=== PATIENT | female | born 1940 | race African-American/Black ===

== ENCOUNTER 2017-03-26 03:45 | Inpatient (IN) ==
[2017-03-26] MEDS ORDERED: GLUCAGON 1 MG VIAL IM PRN (04:20)
[2017-03-26] MEDS ORDERED: DEXTROSE 50% 25 GM/50 ML VIAL IV PRN (04:20)
[2017-03-26 04:41] LABS: Basophils % 0.2 % (0.0-0.8); Eosinophils # 0.1 10*3/uL (0.0-0.87); Eosinophils % 0.6 % (0.00-10.9); Hematocrit 33.4 VOL% (35.7-47.0); Hemoglobin 10.9 GM/DL (12.0-16.0); Immature Granulocytes % 0.5 %; Immature Granulocytes Absolute 0.05 #; Lymphocytes % 9.6 % (21.3-54.2); Mean Corpuscular HGB Conc 32.6 GM/DL (32-36); Mean Corpuscular Hemoglobin 28 PG (27-34); Monocytes # 0.3 10*3/uL (0.11-0.8); Monocytes % 2.5 % (1.7-12.7); Neutrophils # 9.3 10*3/uL (1.4-7.4); Neutrophils % 86.6 % (38.7-73.9); Platelet Count 331 T/CUMM (130-400); Red Blood Count 3.93 MC/CUMM (3.8-5.5); Red Cell Distribution Width 14.5 % (9.3-17.3); White Blood Count 10.8 T/CUMM (4-12)
[2017-03-26] MEDS: methylPREDNISolone SOD SUC 40 MG/1 ML VIAL IV SCH ×3 (04:59→20:46)
[2017-03-26] MEDS: INSULIN LISPRO 100 UNIT/ML SUBCUT SCH ×5 (05:05→21:11)
[2017-03-26] MEDS: FAMOTIDINE 20 MG/2 ML VIAL IV SCH ×2 (07:14→18:53)
[2017-03-26] MEDS ORDERED: ALBUTEROL 2.5 MG/3 ML NEB RESP TX PRN (11:27)
[2017-03-26] MEDS ORDERED: PROMETH HCL PO PRN (11:27)
[2017-03-26] MEDS ORDERED: PHENYLEPHRINE HCL PO PRN (11:27)
[2017-03-26] MEDS ORDERED: diphenhydrAMINE 50 MG/1 ML VIAL IV SCH (12:00)
[2017-03-26] MEDS ORDERED: NON-FORMULARY MEDICATION (Alendronate Sodium [Alendronate Sodium] 70 MG) PO SCH (13:00)
[2017-03-26] MEDS: ALBUTEROL/IPRATROPIUM 3 ML NEB RESP TX SCH ×2 (14:40→20:31)
[2017-03-26] MEDS: POTASSIUM CHLORIDE 10 MEQ TABLET PO SCH (20:45)
[2017-03-26] MEDS: glyBURIDE/METFORMIN 2.5-500 MG TABLET PO SCH (20:46)
[2017-03-26] MEDS ORDERED: PRAVASTATIN 40 MG TABLET PO SCH (21:00)
[2017-03-26] MEDS ORDERED: ARIPiprazole 5 MG TABLET PO SCH (21:00)
[2017-03-26] MEDS ORDERED: AMITRIPTYLINE 25 MG TABLET PO SCH (21:00)
[2017-03-26] MEDS ORDERED: RANITIDINE 150 MG TABLET PO SCH (21:00)
[2017-03-26] MEDS ORDERED: THEOPHYLLINE ER (24 HR) 400 MG CAPSULE PO SCH (21:00)
[2017-03-27] MEDS: ALBUTEROL/IPRATROPIUM 3 ML NEB RESP TX SCH ×2 (01:11→08:00)
[2017-03-27] MEDS: methylPREDNISolone SOD SUC 40 MG/1 ML VIAL IV SCH (05:29)
[2017-03-27] MEDS: FAMOTIDINE 20 MG/2 ML VIAL IV SCH (06:37)
[2017-03-27 06:42] LABS: Basophils % 0.1 % (0.0-0.8); Hemoglobin 10.1 GM/DL (12.0-16.0); Immature Granulocytes % 0.9 %; Immature Granulocytes Absolute 0.14 #; Lymphocytes # 1.2 10*3/uL (1.4-4.0); Lymphocytes % 7.3 % (21.3-54.2); Mean Corpuscular HGB Conc 32.6 GM/DL (32-36); Mean Corpuscular Hemoglobin 27 PG (27-34); Mean Corpuscular Volume 84.2 FL (87-102); Mean Platelet Volume 9.7 FL (9.6-12.0); Monocytes # 0.6 10*3/uL (0.11-0.8); Monocytes % 3.4 % (1.7-12.7); Neutrophils # 14.5 10*3/uL (1.4-7.4); Neutrophils % 88.3 % (38.7-73.9); Platelet Count 338 T/CUMM (130-400); Red Blood Count 3.68 MC/CUMM (3.8-5.5); Red Cell Distribution Width 14.5 % (9.3-17.3); White Blood Count 16.4 T/CUMM (4-12)
[2017-03-27 07:01] LABS: Albumin 3.4 G/DL (3.4-5.0); Bilirubin,Total 0.5 MG/DL (0.2-1.0); Calcium 9.5 MG/DL (8.5-10.1); Magnesium 2.2 MG/DL (1.8-2.4); Osmolality,Calculated 291.4 MOS/KG (273-304); Phosphorous 3.6 MG/DL (2.5-4.9); Potassium 4.4 MMOL/L (3.5-5.1); Total Protein 6.8 G/DL (6.4-8.3)
[2017-03-27 07:58] VITALS: BP 122/58
[2017-03-27] MEDS: INSULIN LISPRO 100 UNIT/ML SUBCUT SCH (08:54)
[2017-03-27] MEDS: glyBURIDE/METFORMIN 2.5-500 MG TABLET PO SCH (08:55)
[2017-03-27] MEDS: POTASSIUM CHLORIDE 10 MEQ TABLET PO SCH (08:55)
[2017-03-27] MEDS ORDERED: DILTIAZEM CD 300 MG CAPSULE PO SCH (09:00)
[2017-03-27] MEDS ORDERED: FUROSEMIDE 40 MG TABLET PO SCH (09:00)
[2017-03-27] MEDS ORDERED: MULTIVITAMIN (CENTRUM) TABLET PO SCH (09:00)
[2017-03-27] MEDS ORDERED: NON-FORMULARY MEDICATION (Fluticasone/Vilanterol [Breo Ellipta 100-25 Mcg Inh] 1 PUFF) INH SCH (09:00)
[2017-03-27] MEDS ORDERED: PANTOPRAZOLE 40 MG TABLET PO SCH (09:00)
[2017-03-27] MEDS ORDERED: TRIAMTERENE/HCTZ 37.5-25 MG CAPSULE PO SCH (09:00)
== END 2017-03-27 11:45 | disposition home or self-care (01) | DRG 916 ==
LOC: EDBD → EDUNIT# → N.ED 03:45 → N.EDINP 04:18 → N.ICU 04:41 → N.4E 11:59

== ENCOUNTER 2017-10-20 05:22 | Inpatient (IN) ==
[2017-10-22 12:00] VITALS: BP 132/71
== END 2017-10-22 15:17 | disposition home or self-care (01) | DRG 390 ==
LOC: EDUNIT# → EDBD → N.ED 05:22 → N.EDINP 07:14 → N.5E 11:52
PROVIDERS: ADMIT Surgery; ATTEND Surgery

== ENCOUNTER 2018-12-06 00:30 | Inpatient (IN) ==
[2018-12-06] MEDS ORDERED: ACETAMINOPHEN 325 MG TABLET PO PRN (02:41)
[2018-12-06] MEDS ORDERED: ONDANSETRON 4 MG/2 ML VIAL IV PRN (02:41)
[2018-12-06] MEDS ORDERED: HYDROmorphone 2 MG/1 ML VIAL IV PRN (02:41)
[2018-12-06] MEDS ORDERED: LABETALOL 20 MG/4 ML SYRINGE IV PRN (03:10)
[2018-12-06] MEDS: SODIUM CHLORIDE 0.9% 1,000 ML IV SCH ×2 (03:29→11:47)
[2018-12-06] MEDS: PIPERACILLIN/TAZOBACTAM 3,375 MG in SODIUM CHLORIDE 0.9% 100 ML IV SCH ×3 (03:30→18:45)
[2018-12-06] MEDS ORDERED: DEXTROSE 50% 25 GM/50 ML VIAL IV PRN (03:38)
[2018-12-06] MEDS ORDERED: GLUCAGON 1 MG VIAL IM PRN (03:38)
[2018-12-06 04:10] LABS: Basophils % 0.3 % (0.0-0.8); Eosinophils # 0.2 10*3/uL (0.0-0.87); Hematocrit 37.4 VOL% (35.7-47.0); Hemoglobin 11.2 GM/DL (12.0-16.0); Immature Granulocytes % 2.4 %; Immature Granulocytes Absolute 0.22 #; Lymphocytes # 1.6 10*3/uL (1.4-4.0); Lymphocytes % 17.2 % (21.3-54.2); Mean Corpuscular HGB Conc 29.9 GM/DL (32-36); Mean Corpuscular Volume 90.1 FL (87-102); Mean Platelet Volume 10.2 FL (9.6-12.0); Monocytes % 10.9 % (1.7-12.7); Neutrophils % 67.2 % (38.7-73.9); Platelet Count 285 T/CUMM (130-400); Red Blood Count 4.15 MC/CUMM (3.8-5.5); Red Cell Distribution Width 16.1 % (9.3-17.3); White Blood Count 9.2 T/CUMM (4-12)
[2018-12-06 04:15] LABS: Albumin 3.2 G/DL (3.4-5.0); Bilirubin,Total 0.4 MG/DL (0.2-1.0); Calcium 10.2 MG/DL (8.5-10.1); Osmolality,Calculated 280.3 MOS/KG (273-304); Total Protein 7.2 G/DL (6.4-8.3)
[2018-12-06 05:05] LABS: Apearance,Urine CLEAR (Clear); Bilirubin,Urine Negative (Negative); Blood, Urine Negative (Negative); Glucose,Urine (UA) Negative (Negative); Hyaline Casts,Urine 1 /LPF (0-3); Ketones,Urine Negative (Negative); Nitrite,Urine Negative (Negative); Protein,Urine 100 MG/DL; RBC,Urine <1 /HPF (0-4); Squamous Epithelial Cell,Urine Occasional /HPF (0-10); Urine Color Yellow (Yellow); Urine Specific Gravity 1.042 (1.001-1.035); Urine Urobilinogen < 2.0 EU/DL (0.2-1.0); WBC,Urine 1 /HPF (0-6)
[2018-12-06] MEDS: INSULIN REGULAR 100 UNIT/ML SUBCUT SCH ×3 (05:34→18:28)
[2018-12-06] MEDS: ENOXAPARIN 40 MG/0.4 ML SYRINGE SUBCUT SCH (09:43)
[2018-12-06] MEDS: FAMOTIDINE 20 MG/2 ML VIAL IV SCH (09:44)
[2018-12-07] MEDS: INSULIN REGULAR 100 UNIT/ML SUBCUT SCH ×4 (00:13→19:12)
[2018-12-07] MEDS: SODIUM CHLORIDE 0.9% 1,000 ML IV SCH ×3 (03:27→10:41)
[2018-12-07] MEDS: PIPERACILLIN/TAZOBACTAM 3,375 MG in SODIUM CHLORIDE 0.9% 100 ML IV SCH ×3 (04:00→22:14)
[2018-12-07 06:36] LABS: Calcium 9.4 MG/DL (8.5-10.1); Osmolality,Calculated 285.7 MOS/KG (273-304)
[2018-12-07 06:39] LABS: Basophils % 0.2 % (0.0-0.8); Eosinophils # 0.2 10*3/uL (0.0-0.87); Eosinophils % 2.2 % (0.00-10.9); Hematocrit 32.7 VOL% (35.7-47.0); Immature Granulocytes % 2.4 %; Immature Granulocytes Absolute 0.21 #; Lymphocytes # 1.8 10*3/uL (1.4-4.0); Lymphocytes % 20.2 % (21.3-54.2); Mean Corpuscular HGB Conc 29.4 GM/DL (32-36); Mean Corpuscular Volume 92.9 FL (87-102); Mean Platelet Volume 10.1 FL (9.6-12.0); Monocytes % 9.9 % (1.7-12.7); Neutrophils % 65.1 % (38.7-73.9); Platelet Count 277 T/CUMM (130-400); Red Blood Count 3.52 MC/CUMM (3.8-5.5); Red Cell Distribution Width 16.2 % (9.3-17.3); White Blood Count 8.9 T/CUMM (4-12)
[2018-12-07 06:40] LABS: Hemoglobin 9.6 GM/DL (12.0-16.0)
[2018-12-07 06:41] LABS: Hypochromasia 1+; Ovalocytes Slight; Platelet Estimate Adequate
[2018-12-07] MEDS: ENOXAPARIN 40 MG/0.4 ML SYRINGE SUBCUT SCH (10:07)
[2018-12-07] MEDS: FAMOTIDINE 20 MG/2 ML VIAL IV SCH ×2 (10:07→12:02)
[2018-12-07] MEDS: LEVALBUTEROL 1.25 MG/3 ML NEB RESP TX PRN (18:26)
[2018-12-08] MEDS: INSULIN REGULAR 100 UNIT/ML SUBCUT SCH ×4 (00:36→18:05)
[2018-12-08] MEDS: GLUCOSE GEL 15 GM TUBE PO PRN ×4 (00:47→18:26)
[2018-12-08] MEDS: SODIUM CHLORIDE 0.9% 1,000 ML IV SCH ×3 (04:53→21:15)
[2018-12-08 05:18] LABS: Basophils % 0.3 % (0.0-0.8); Eosinophils # 0.2 10*3/uL (0.0-0.87); Eosinophils % 2.2 % (0.00-10.9); Hematocrit 32.9 VOL% (35.7-47.0); Immature Granulocytes % 2.6 %; Immature Granulocytes Absolute 0.24 #; Lymphocytes # 1.7 10*3/uL (1.4-4.0); Mean Corpuscular HGB Conc 28.3 GM/DL (32-36); Mean Corpuscular Volume 94.5 FL (87-102); Mean Platelet Volume 9.8 FL (9.6-12.0); Monocytes % 9.4 % (1.7-12.7); Neutrophils % 66.5 % (38.7-73.9); Platelet Count 272 T/CUMM (130-400); Red Blood Count 3.48 MC/CUMM (3.8-5.5); Red Cell Distribution Width 16.1 % (9.3-17.3); White Blood Count 9.2 T/CUMM (4-12)
[2018-12-08] MEDS: LEVALBUTEROL 1.25 MG/3 ML NEB RESP TX PRN ×3 (05:32→15:42)
[2018-12-08 06:03] LABS: Calcium 9.5 MG/DL (8.5-10.1); Osmolality,Calculated 288.6 MOS/KG (273-304)
[2018-12-08 06:06] LABS: Hemoglobin 9.5 GM/DL (12.0-16.0)
[2018-12-08 06:18] LABS: Hypochromasia 1+; Microcytosis 1+
[2018-12-08 06:19] LABS: Ovalocytes Slight; Platelet Estimate Normal
[2018-12-08] MEDS: PIPERACILLIN/TAZOBACTAM 3,375 MG in SODIUM CHLORIDE 0.9% 100 ML IV SCH ×3 (06:45→21:15)
[2018-12-08] MEDS: ENOXAPARIN 40 MG/0.4 ML SYRINGE SUBCUT SCH (09:55)
[2018-12-08] MEDS: FAMOTIDINE 20 MG/2 ML VIAL IV SCH (09:56)
[2018-12-09] MEDS: LEVALBUTEROL 1.25 MG/3 ML NEB RESP TX PRN ×2 (00:17→11:16)
[2018-12-09] MEDS: INSULIN REGULAR 100 UNIT/ML SUBCUT SCH ×4 (01:16→18:00)
[2018-12-09] MEDS: GLUCOSE GEL 15 GM TUBE PO PRN (01:25)
[2018-12-09 05:56] LABS: Basophils % 0.3 % (0.0-0.8); Eosinophils # 0.3 10*3/uL (0.0-0.87); Eosinophils % 2.8 % (0.00-10.9); Hematocrit 31.9 VOL% (35.7-47.0); Hemoglobin 9.3 GM/DL (12.0-16.0); Immature Granulocytes % 2.5 %; Immature Granulocytes Absolute 0.24 #; Lymphocytes % 21.2 % (21.3-54.2); Mean Corpuscular HGB Conc 29.2 GM/DL (32-36); Mean Corpuscular Volume 93.8 FL (87-102); Mean Platelet Volume 9.9 FL (9.6-12.0); Monocytes % 9.9 % (1.7-12.7); Neutrophils % 63.3 % (38.7-73.9); Platelet Count 254 T/CUMM (130-400); Red Cell Distribution Width 16.1 % (9.3-17.3); White Blood Count 9.5 T/CUMM (4-12)
[2018-12-09 06:11] LABS: Calcium 9.9 MG/DL (8.5-10.1); Osmolality,Calculated 289.4 MOS/KG (273-304)
[2018-12-09 06:12] LABS: Anisocytosis Slight; Macrocytosis Slight; Platelet Estimate Normal
[2018-12-09] MEDS: PIPERACILLIN/TAZOBACTAM 3,375 MG in SODIUM CHLORIDE 0.9% 100 ML IV SCH ×3 (06:25→21:06)
[2018-12-09] MEDS: FAMOTIDINE 20 MG/2 ML VIAL IV SCH (09:47)
[2018-12-09] MEDS: ENOXAPARIN 40 MG/0.4 ML SYRINGE SUBCUT SCH (09:47)
[2018-12-09] MEDS ORDERED: LABETALOL 20 MG/4 ML SYRINGE IV PRN (11:38)
[2018-12-09] MEDS ORDERED: Fluticasone Furoate-Vilanterol [Breo Ellipta] INH SCH (11:45)
[2018-12-09] MEDS ORDERED: ALBUTEROL 2.5 MG/3 ML NEB RESP TX PRN (12:00)
[2018-12-09] MEDS: FUROSEMIDE 40 MG TABLET PO SCH (12:17)
[2018-12-09] MEDS: TRIAMTERENE/HCTZ 37.5-25 MG CAPSULE PO SCH (12:17)
[2018-12-09] MEDS: ATENOLOL 25 MG TABLET PO SCH (12:17)
[2018-12-09] MEDS: MULTIVITAMIN (CENTRUM) TABLET PO SCH (12:18)
[2018-12-09] MEDS: DILTIAZEM CD 300 MG CAPSULE PO SCH (12:18)
[2018-12-09] MEDS: BENZONATATE 100 MG CAPSULE PO PRN (14:38)
[2018-12-09] MEDS: ALBUTEROL/IPRATROPIUM 3 ML NEB RESP TX SCH ×2 (14:53→21:25)
[2018-12-09] MEDS: AMITRIPTYLINE 25 MG TABLET PO SCH (21:06)
[2018-12-09] MEDS: SIMVASTATIN 20 MG TABLET PO SCH (21:06)
[2018-12-09] MEDS: THEOPHYLLINE ER (24 HR) 400 MG CAPSULE PO SCH (21:06)
[2018-12-09] MEDS: ARIPiprazole 5 MG TABLET PO SCH (21:06)
[2018-12-10] MEDS: ALBUTEROL/IPRATROPIUM 3 ML NEB RESP TX SCH ×4 (01:32→19:15)
[2018-12-10] MEDS: INSULIN REGULAR 100 UNIT/ML SUBCUT SCH ×4 (03:09→18:26)
[2018-12-10 06:01] LABS: Basophils % 0.3 % (0.0-0.8); Eosinophils # 0.3 10*3/uL (0.0-0.87); Eosinophils % 3.6 % (0.00-10.9); Hematocrit 31.6 VOL% (35.7-47.0); Hemoglobin 9.3 GM/DL (12.0-16.0); Immature Granulocytes Absolute 0.18 #; Lymphocytes # 1.8 10*3/uL (1.4-4.0); Lymphocytes % 20.6 % (21.3-54.2); Mean Corpuscular HGB Conc 29.4 GM/DL (32-36); Mean Corpuscular Volume 91.6 FL (87-102); Mean Platelet Volume 10.2 FL (9.6-12.0); Monocytes % 9.3 % (1.7-12.7); Neutrophils % 64.2 % (38.7-73.9); Platelet Count 264 T/CUMM (130-400); Red Blood Count 3.45 MC/CUMM (3.8-5.5); Red Cell Distribution Width 15.9 % (9.3-17.3); White Blood Count 8.9 T/CUMM (4-12)
[2018-12-10] MEDS: PIPERACILLIN/TAZOBACTAM 3,375 MG in SODIUM CHLORIDE 0.9% 100 ML IV SCH ×3 (06:25→21:15)
[2018-12-10 06:29] LABS: Calcium 10.6 MG/DL (8.5-10.1); Osmolality,Calculated 284.8 MOS/KG (273-304)
[2018-12-10] MEDS: SODIUM CHLORIDE 0.9% 1,000 ML IV SCH (07:04)
[2018-12-10] MEDS ORDERED: POTASSIUM CHLORIDE 20 MEQ TABLET PO PRN (08:21)
[2018-12-10] MEDS: TRIAMTERENE/HCTZ 37.5-25 MG CAPSULE PO SCH (08:47)
[2018-12-10] MEDS: DILTIAZEM CD 300 MG CAPSULE PO SCH (08:47)
[2018-12-10] MEDS: MULTIVITAMIN (CENTRUM) TABLET PO SCH (08:47)
[2018-12-10] MEDS: ENOXAPARIN 40 MG/0.4 ML SYRINGE SUBCUT SCH (08:48)
[2018-12-10] MEDS: BENZONATATE 100 MG CAPSULE PO PRN (08:48)
[2018-12-10] MEDS: FUROSEMIDE 40 MG TABLET PO SCH (08:48)
[2018-12-10] MEDS: FAMOTIDINE 20 MG/2 ML VIAL IV SCH (08:49)
[2018-12-10] MEDS: ATENOLOL 25 MG TABLET PO SCH (08:51)
[2018-12-10] MEDS ORDERED: MAGNESIUM SULF RIDER 2 GM in PREMIX 1 EACH IV ONE (09:13)
[2018-12-10] MEDS ORDERED: POTASSIUM CHLORIDE 20 MEQ/15 ML UDCUP PO ONE (09:13)
[2018-12-10] MEDS ORDERED: amLODIPine 5 MG TABLET PO SCH (09:30)
[2018-12-10] MEDS: ARIPiprazole 5 MG TABLET PO SCH (20:28)
[2018-12-10] MEDS: SIMVASTATIN 20 MG TABLET PO SCH (20:28)
[2018-12-10] MEDS: THEOPHYLLINE ER (24 HR) 400 MG CAPSULE PO SCH (20:28)
[2018-12-10] MEDS: AMITRIPTYLINE 25 MG TABLET PO SCH (20:28)
[2018-12-11] MEDS: ALBUTEROL/IPRATROPIUM 3 ML NEB RESP TX SCH ×3 (00:52→12:36)
[2018-12-11] MEDS: INSULIN REGULAR 100 UNIT/ML SUBCUT SCH ×3 (01:14→12:56)
[2018-12-11] MEDS: PIPERACILLIN/TAZOBACTAM 3,375 MG in SODIUM CHLORIDE 0.9% 100 ML IV SCH (06:12)
[2018-12-11] MEDS: DILTIAZEM CD 300 MG CAPSULE PO SCH (09:41)
[2018-12-11] MEDS: FUROSEMIDE 40 MG TABLET PO SCH (09:42)
[2018-12-11] MEDS: ENOXAPARIN 40 MG/0.4 ML SYRINGE SUBCUT SCH (09:42)
[2018-12-11] MEDS: TRIAMTERENE/HCTZ 37.5-25 MG CAPSULE PO SCH (09:42)
[2018-12-11] MEDS: MULTIVITAMIN (CENTRUM) TABLET PO SCH (09:42)
[2018-12-11] MEDS: FAMOTIDINE 20 MG/2 ML VIAL IV SCH (09:43)
[2018-12-11] MEDS: ATENOLOL 25 MG TABLET PO SCH (09:43)
[2018-12-11 19:21] VITALS: BP 145/71
== END 2018-12-11 13:10 | disposition home or self-care (01) | DRG 389 ==
LOC: EDBD → EDUNIT# → N.ED 00:30 → N.EDINP 01:26 → N.CC 02:31 → N.3E 15:19
PROVIDERS: ADMIT Surgery; ATTEND Surgery

== ENCOUNTER 2019-05-19 00:02 | Inpatient (IN) ==
[2019-05-19] MEDS ORDERED: NICOTINE 21 MG/24 HR PATCH TRANSDERM PRN (02:42)
[2019-05-19] MEDS ORDERED: ONDANSETRON 4 MG/2 ML VIAL IV PRN (02:42)
[2019-05-19] MEDS ORDERED: GLUCAGON 1 MG VIAL IM PRN (03:08)
[2019-05-19] MEDS ORDERED: MEPERIDINE 25 MG/1 ML VIAL IV PRN (03:11)
[2019-05-19] MEDS: SODIUM CHLORIDE 0.9% 1,000 ML IV SCH ×2 (04:58→23:13)
[2019-05-19 05:14] LABS: Basophils % 0.3 % (0.0-0.8); Eosinophils # 0.1 10*3/uL (0.0-0.87); Eosinophils % 1.1 % (0.00-10.9); Hematocrit 30.8 VOL% (35.7-47.0); Hemoglobin 9.1 GM/DL (12.0-16.0); Immature Granulocytes % 0.3 %; Immature Granulocytes Absolute 0.02 #; Mean Corpuscular HGB Conc 29.5 GM/DL (32-36); Mean Corpuscular Volume 93.9 FL (87-102); Mean Platelet Volume 9.6 FL (9.6-12.0); Monocytes % 12.1 % (1.7-12.7); Neutrophils % 70.2 % (38.7-73.9); Platelet Count 259 T/CUMM (130-400); Red Blood Count 3.28 MC/CUMM (3.8-5.5); Red Cell Distribution Width 14.4 % (9.3-17.3); White Blood Count 6.1 T/CUMM (4-12)
[2019-05-19 05:41] LABS: Albumin 3.3 G/DL (3.4-5.0); Bilirubin,Direct 0.11 MG/DL (0.0-0.20); Bilirubin,Indirect 1.1 MG/DL (0.0-1.0); Bilirubin,Total 1.2 MG/DL (0.2-1.0); Bilirubin,Total 1.3 MG/DL (0.2-1.0); Calcium 9.4 MG/DL (8.5-10.1); Osmolality,Calculated 278.8 MOS/KG (273-304); Total Protein 7.3 G/DL (6.4-8.3); Total Protein 7.4 G/DL (6.4-8.3)
[2019-05-19 05:42] LABS: Band Neutrophils 7 % (0-10); Eosinophils 4 % (0-10); Hypochromasia 1+; Lymphocytes 19 % (20-55); Ovalocytes Slight; Platelet Estimate Adequate; Segmented Neutrophils 62 % (50-85); Total Cells Counted 100
[2019-05-19 06:22] LABS: Apearance,Urine CLEAR (Clear); Bacteria,Urine Occasional /HPF (Few); Bilirubin,Urine Negative (Negative); Blood, Urine Negative (Negative); Glucose,Urine (UA) Negative (Negative); Hyaline Casts,Urine 7 /LPF (0-3); Ketones,Urine Negative (Negative); Mucus,Urine Occasional /LPF (Occasional); Nitrite,Urine Negative (Negative); Protein,Urine 100 MG/DL; RBC,Urine 1 /HPF (0-4); Squamous Epithelial Cell,Urine Occasional /HPF (0-10); Urine Color Yellow (Yellow); Urine Specific Gravity 1.017 (1.001-1.035); Urine Urobilinogen < 2.0 EU/DL (0.2-1.0); WBC,Urine 1 /HPF (0-6)
[2019-05-19] MEDS: ALBUTEROL/IPRATROPIUM 3 ML NEB RESP TX SCH ×3 (07:13→19:12)
[2019-05-19] MEDS: PANTOPRAZOLE 40 MG VIAL IV SCH ×2 (09:28→21:39)
[2019-05-19] MEDS: INSULIN REGULAR 100 UNIT/ML SUBCUT SCH ×5 (09:29→21:35)
[2019-05-19] MEDS: DEXTROSE 10% 250 ML BAG IV PRN ×2 (16:50→23:46)
[2019-05-20] MEDS: ALBUTEROL/IPRATROPIUM 3 ML NEB RESP TX SCH ×4 (01:45→19:12)
[2019-05-20 05:54] LABS: Basophils % 0.2 % (0.0-0.8); Eosinophils # 0.1 10*3/uL (0.0-0.87); Eosinophils % 1.3 % (0.00-10.9); Hematocrit 28.7 VOL% (35.7-47.0); Hemoglobin 8.3 GM/DL (12.0-16.0); Immature Granulocytes % 0.4 %; Immature Granulocytes Absolute 0.02 #; Lymphocytes # 1.1 10*3/uL (1.4-4.0); Lymphocytes % 20.5 % (21.3-54.2); Mean Corpuscular HGB Conc 28.9 GM/DL (32-36); Mean Platelet Volume 9.5 FL (9.6-12.0); Monocytes % 11.2 % (1.7-12.7); Neutrophils % 66.4 % (38.7-73.9); Platelet Count 233 T/CUMM (130-400); Red Blood Count 2.99 MC/CUMM (3.8-5.5); Red Cell Distribution Width 14.5 % (9.3-17.3); White Blood Count 5.3 T/CUMM (4-12)
[2019-05-20 06:18] LABS: Calcium 8.5 MG/DL (8.5-10.1); Osmolality,Calculated 280.3 MOS/KG (273-304)
[2019-05-20 06:26] LABS: Hypochromasia 1+; Ovalocytes Slight; Platelet Estimate Adequate
[2019-05-20] MEDS: DEXTROSE 10% 250 ML BAG IV PRN (07:59)
[2019-05-20] MEDS: PANTOPRAZOLE 40 MG VIAL IV SCH ×2 (08:01→20:52)
[2019-05-20] MEDS: INSULIN REGULAR 100 UNIT/ML SUBCUT SCH ×4 (08:03→20:55)
[2019-05-20] MEDS: SODIUM CHLORIDE 0.9% 1,000 ML IV SCH (08:08)
[2019-05-20] MEDS: DEXTROSE 5% NACL 0.9% 1,000 ML IV SCH ×2 (09:35→22:00)
[2019-05-21] MEDS: ALBUTEROL/IPRATROPIUM 3 ML NEB RESP TX SCH ×4 (00:24→19:20)
[2019-05-21 06:03] LABS: Calcium 8.8 MG/DL (8.5-10.1); Osmolality,Calculated 282.1 MOS/KG (273-304)
[2019-05-21 07:29] LABS: Basophils % 0.1 % (0.0-0.8); Eosinophils # 0.1 10*3/uL (0.0-0.87); Eosinophils % 1.3 % (0.00-10.9); Hematocrit 29.4 VOL% (35.7-47.0); Hemoglobin 8.6 GM/DL (12.0-16.0); Immature Granulocytes % 0.4 %; Immature Granulocytes Absolute 0.03 #; Lymphocytes # 1.1 10*3/uL (1.4-4.0); Lymphocytes % 15.3 % (21.3-54.2); Mean Corpuscular HGB Conc 29.3 GM/DL (32-36); Mean Corpuscular Volume 96.1 FL (87-102); Mean Platelet Volume 9.9 FL (9.6-12.0); Monocytes % 9.6 % (1.7-12.7); Neutrophils % 73.3 % (38.7-73.9); Platelet Count 255 T/CUMM (130-400); Red Blood Count 3.06 MC/CUMM (3.8-5.5); Red Cell Distribution Width 14.5 % (9.3-17.3); White Blood Count 7.2 T/CUMM (4-12)
[2019-05-21 07:43] LABS: Hypochromasia 1+; Macrocytosis Slight
[2019-05-21 07:44] LABS: Ovalocytes Slight; Platelet Estimate Normal
[2019-05-21] MEDS: PANTOPRAZOLE 40 MG VIAL IV SCH ×2 (08:18→21:16)
[2019-05-21] MEDS ORDERED: LABETALOL 100 MG/20 ML VIAL IV PRN (08:19)
[2019-05-21] MEDS: INSULIN REGULAR 100 UNIT/ML SUBCUT SCH ×4 (08:33→21:16)
[2019-05-21] MEDS: DEXTROSE 5% NACL 0.9% 1,000 ML IV SCH ×2 (08:36→18:39)
[2019-05-21] MEDS: DILTIAZEM CD 300 MG CAPSULE PO SCH (12:27)
[2019-05-21] MEDS: TRIAMTERENE/HCTZ 37.5-25 MG CAPSULE PO SCH (12:28)
[2019-05-21] MEDS: ANASTROZOLE 1 MG TABLET PO SCH (12:28)
[2019-05-21] MEDS: atenoloL 25 MG TABLET PO SCH (12:28)
[2019-05-21 13:46] LABS: Hepatitis B Core IgM Quant 0.07 Index; Hepatitis B Surface Ag Quant < 0.10 Index; Hepatitis B Surface Ag Result Negative (Negative); Hepatitis C Virus Ab Quant 0.05 Index; Hepatitis C Virus Ab Result Negative (Negative)
[2019-05-21] MEDS: SODIUM CHLORIDE 0.9% 1,000 ML IV SCH ×2 (18:39→18:41)
[2019-05-21] MEDS ORDERED: FUROSEMIDE 40 MG/4 ML VIAL IV ONE (19:01)
[2019-05-21] MEDS ORDERED: ARIPiprazole 5 MG TABLET PO SCH (21:00)
[2019-05-21] MEDS ORDERED: AMITRIPTYLINE 25 MG TABLET PO SCH (21:00)
[2019-05-21] MEDS ORDERED: THEOPHYLLINE ER (24 HR) 400 MG CAPSULE PO SCH (21:00)
[2019-05-21] MEDS ORDERED: SIMVASTATIN 20 MG TABLET PO SCH (21:00)
[2019-05-22] MEDS: ALBUTEROL/IPRATROPIUM 3 ML NEB RESP TX SCH ×2 (00:45→08:02)
[2019-05-22 06:57] LABS: Calcium 8.7 MG/DL (8.5-10.1); Osmolality,Calculated 281.1 MOS/KG (273-304)
[2019-05-22 07:06] LABS: Basophils % 0.3 % (0.0-0.8); Eosinophils # 0.2 10*3/uL (0.0-0.87); Eosinophils % 2.3 % (0.00-10.9); Hematocrit 30.4 VOL% (35.7-47.0); Hemoglobin 8.7 GM/DL (12.0-16.0); Immature Granulocytes % 0.6 %; Immature Granulocytes Absolute 0.04 #; Lymphocytes # 1.5 10*3/uL (1.4-4.0); Lymphocytes % 20.6 % (21.3-54.2); Mean Corpuscular HGB Conc 28.6 GM/DL (32-36); Mean Corpuscular Volume 96.2 FL (87-102); Mean Platelet Volume 9.5 FL (9.6-12.0); Monocytes % 10.1 % (1.7-12.7); Neutrophils % 66.1 % (38.7-73.9); Platelet Count 244 T/CUMM (130-400); Red Blood Count 3.16 MC/CUMM (3.8-5.5); Red Cell Distribution Width 14.4 % (9.3-17.3)
[2019-05-22 07:18] LABS: Hypochromasia 1+; Microcytosis Slight; Ovalocytes Slight; Platelet Estimate Adequate
[2019-05-22] MEDS: INSULIN REGULAR 100 UNIT/ML SUBCUT SCH ×2 (08:10→11:06)
[2019-05-22] MEDS: DEXTROSE 5% NACL 0.9% 1,000 ML IV SCH (08:11)
[2019-05-22] MEDS: ANASTROZOLE 1 MG TABLET PO SCH (08:29)
[2019-05-22] MEDS: TRIAMTERENE/HCTZ 37.5-25 MG CAPSULE PO SCH (08:29)
[2019-05-22] MEDS: atenoloL 25 MG TABLET PO SCH (08:30)
[2019-05-22] MEDS: DILTIAZEM CD 300 MG CAPSULE PO SCH (08:30)
[2019-05-22] MEDS: PANTOPRAZOLE 40 MG VIAL IV SCH (08:31)
[2019-05-22] MEDS ORDERED: FUROSEMIDE 40 MG TABLET PO SCH (09:00)
[2019-05-22 11:46] VITALS: BP 144/70
== END 2019-05-22 14:30 | disposition home or self-care (01) | DRG 389 ==
LOC: N.3E 01:30 → SUATTDRO 01:30 → INTOOBSV 01:30
PROVIDERS: ADMIT Internal Medicine; ATTEND Internal Medicine

== ENCOUNTER 2019-10-21 14:43 | Inpatient (IN) ==
[2019-10-21] MEDS ORDERED: ONDANSETRON 4 MG/2 ML VIAL IV STA (15:10)
[2019-10-21] MEDS ORDERED: cefTRIAXone 1,000 MG in SODIUM CHLORIDE 0.9% 100 ML IV STA (15:10)
[2019-10-21] MEDS ORDERED: SODIUM CHLORIDE 0.9% 1,000 ML IV STA (15:10)
[2019-10-21] MEDS ORDERED: PANTOPRAZOLE 40 MG VIAL IV STA (15:10)
[2019-10-21] MEDS ORDERED: metroNIDAZOLE INJ 500 MG in PREMIX 1 EACH IV STA (15:10)
[2019-10-21] MEDS ORDERED: METOCLOPRAMIDE 10 MG/2 ML VIAL IV STA (15:10)
[2019-10-21 16:06] LABS: Basophils % 0.2 % (0.0-0.8); Eosinophils # 0.1 10*3/uL (0.0-0.87); Eosinophils % 0.9 % (0.00-10.9); Hematocrit 31.6 VOL% (35.7-47.0); Hemoglobin 9.2 GM/DL (12.0-16.0); Immature Granulocytes % 0.6 %; Immature Granulocytes Absolute 0.05 #; Lymphocytes % 12.2 % (21.3-54.2); Mean Corpuscular HGB Conc 29.1 GM/DL (32-36); Mean Corpuscular Volume 92.4 FL (87-102); Mean Platelet Volume 9.2 FL (9.6-12.0); Monocytes % 5.5 % (1.7-12.7); Neutrophils % 80.6 % (38.7-73.9); Platelet Count 256 T/CUMM (130-400); Red Blood Count 3.42 MC/CUMM (3.8-5.5); White Blood Count 8.1 T/CUMM (4-12)
[2019-10-21 16:17] LABS: PT Patient Result 10.5 SECS (9.8-11.9); Partial Thromboplastin Time 24.9 SECS (23.9-33.8)
[2019-10-21 16:34] LABS: Alanine Aminotransferase 28 U/L (13-56); Albumin 3.4 G/DL (3.4-5.0); Alkaline Phosphatase 207 U/L (45-117); Amylase 201 U/L (25-115); Aspartate Amino Transferase 35 U/L (0-37); Blood Urea Nitrogen 17 MG/DL (7-18); Calcium 10.4 MG/DL (8.5-10.1); Estimated Glom Filtration Rate 38 ML/MIN; Glucose 126 MG/DL (74-106); Total Protein 7.7 G/DL (6.4-8.3); Troponin I < 0.015 NG/ML (0.00-0.045)
[2019-10-21 16:56] LABS: Apearance,Urine CLEAR (Clear); Bilirubin,Urine Negative (Negative); Blood, Urine Negative (Negative); Glucose,Urine (UA) Negative (Negative); Ketones,Urine Negative (Negative); Nitrite,Urine Negative (Negative); Protein,Urine 100 MG/DL; Urine Color Yellow (Yellow); Urine Specific Gravity 1.014 (1.001-1.035); Urine Urobilinogen < 2.0 EU/DL (0.2-1.0); WBC,Urine 1 /HPF (0-6)
[2019-10-21] MEDS ORDERED: GLUCAGON 1 MG VIAL IM PRN (17:39)
[2019-10-21] MEDS ORDERED: ONDANSETRON 4 MG/2 ML VIAL IV PRN (17:39)
[2019-10-21] MEDS ORDERED: hydrALAZINE 20 MG/1 ML VIAL IV PRN (17:39)
[2019-10-21] MEDS: INSULIN LISPRO 100 UNIT/ML SUBCUT SCH (18:05)
[2019-10-21] MEDS: ALBUTEROL/IPRATROPIUM 3 ML NEB RESP TX SCH (19:26)
[2019-10-21] MEDS: ALBUTEROL 2.5 MG/3 ML NEB RESP TX SCH (20:35)
[2019-10-21] MEDS ORDERED: THEOPHYLLINE ER (24 HR) 400 MG CAPSULE PO SCH (21:00)
[2019-10-21] MEDS: SODIUM CHLORIDE 0.9% 1,000 ML IV SCH (22:35)
[2019-10-21] MEDS: metroNIDAZOLE INJ 500 MG in PREMIX 1 EACH IV SCH (22:36)
[2019-10-22] MEDS: INSULIN LISPRO 100 UNIT/ML SUBCUT SCH ×5 (00:35→23:58)
[2019-10-22] MEDS: ALBUTEROL/IPRATROPIUM 3 ML NEB RESP TX SCH ×4 (01:12→19:02)
[2019-10-22] MEDS: ALBUTEROL 2.5 MG/3 ML NEB RESP TX SCH ×2 (01:12→08:36)
[2019-10-22] MEDS: DEXTROSE 50% 25 GM/50 ML VIAL IV PRN ×2 (05:22→18:45)
[2019-10-22] MEDS: metroNIDAZOLE INJ 500 MG in PREMIX 1 EACH IV SCH ×3 (06:26→21:18)
[2019-10-22 06:29] LABS: Basophils % 0.1 % (0.0-0.8); Eosinophils # 0.1 10*3/uL (0.0-0.87); Eosinophils % 0.9 % (0.00-10.9); Hematocrit 27.8 VOL% (35.7-47.0); Hemoglobin 8.3 GM/DL (12.0-16.0); Immature Granulocytes % 0.7 %; Immature Granulocytes Absolute 0.05 #; Mean Corpuscular HGB Conc 29.9 GM/DL (32-36); Mean Platelet Volume 8.9 FL (9.6-12.0); Monocytes % 5.2 % (1.7-12.7); NRBC # 0.02 10*3/uL; Neutrophils % 80.1 % (38.7-73.9); Platelet Count 239 T/CUMM (130-400); Red Blood Count 3.09 MC/CUMM (3.8-5.5); White Blood Count 7.5 T/CUMM (4-12)
[2019-10-22 06:47] LABS: Calcium 9.9 MG/DL (8.5-10.1); Osmolality,Calculated 282.5 MOS/KG (273-304)
[2019-10-22] MEDS: SODIUM CHLORIDE 0.9% 1,000 ML IV SCH ×3 (10:53→23:31)
[2019-10-22] MEDS: cefTRIAXone 1,000 MG in SYRINGE 1 EACH IV SCH (16:21)
[2019-10-22 16:39] LABS: % Iron Saturation 8.6 % (18-50)
[2019-10-23] MEDS: ALBUTEROL/IPRATROPIUM 3 ML NEB RESP TX SCH ×4 (00:37→20:32)
[2019-10-23] MEDS: metroNIDAZOLE INJ 500 MG in PREMIX 1 EACH IV SCH ×3 (05:10→21:23)
[2019-10-23] MEDS: INSULIN LISPRO 100 UNIT/ML SUBCUT SCH ×3 (06:10→17:46)
[2019-10-23] MEDS: DEXTROSE 50% 25 GM/50 ML VIAL IV PRN (06:10)
[2019-10-23 06:54] LABS: Basophils % 0.2 % (0.0-0.8); Eosinophils # 0.1 10*3/uL (0.0-0.87); Eosinophils % 1.2 % (0.00-10.9); Hematocrit 28.1 VOL% (35.7-47.0); Hemoglobin 8.3 GM/DL (12.0-16.0); Immature Granulocytes % 0.9 %; Immature Granulocytes Absolute 0.05 #; Lymphocytes # 1.1 10*3/uL (1.4-4.0); Mean Corpuscular HGB Conc 29.5 GM/DL (32-36); Mean Corpuscular Volume 89.5 FL (87-102); Monocytes % 8.7 % (1.7-12.7); Platelet Count 235 T/CUMM (130-400); Red Blood Count 3.14 MC/CUMM (3.8-5.5); Red Cell Distribution Width 18.3 % (9.3-17.3); White Blood Count 5.8 T/CUMM (4-12)
[2019-10-23 07:20] LABS: Calcium 9.7 MG/DL (8.5-10.1); Osmolality,Calculated 279.3 MOS/KG (273-304)
[2019-10-23] MEDS: SODIUM CHLORIDE 0.9% 1,000 ML IV SCH (12:40)
[2019-10-23] MEDS: cefTRIAXone 1,000 MG in SYRINGE 1 EACH IV SCH (15:09)
[2019-10-24] MEDS: INSULIN LISPRO 100 UNIT/ML SUBCUT SCH ×4 (00:21→17:44)
[2019-10-24] MEDS: DEXTROSE 50% 25 GM/50 ML VIAL IV PRN (00:23)
[2019-10-24] MEDS: ALBUTEROL/IPRATROPIUM 3 ML NEB RESP TX SCH ×4 (00:41→19:57)
[2019-10-24] MEDS: SODIUM CHLORIDE 0.9% 1,000 ML IV SCH ×2 (01:01→05:29)
[2019-10-24] MEDS: metroNIDAZOLE INJ 500 MG in PREMIX 1 EACH IV SCH ×3 (05:28→21:01)
[2019-10-24 06:10] LABS: Basophils % 0.2 % (0.0-0.8); Eosinophils # 0.1 10*3/uL (0.0-0.87); Eosinophils % 1.5 % (0.00-10.9); Hematocrit 27.3 VOL% (35.7-47.0); Immature Granulocytes % 0.6 %; Immature Granulocytes Absolute 0.03 #; Lymphocytes % 20.2 % (21.3-54.2); Mean Corpuscular HGB Conc 29.3 GM/DL (32-36); Mean Corpuscular Volume 90.7 FL (87-102); Mean Platelet Volume 9.5 FL (9.6-12.0); Monocytes % 7.9 % (1.7-12.7); Neutrophils % 69.6 % (38.7-73.9); Platelet Count 218 T/CUMM (130-400); Red Blood Count 3.01 MC/CUMM (3.8-5.5); Red Cell Distribution Width 18.2 % (9.3-17.3); White Blood Count 4.8 T/CUMM (4-12)
[2019-10-24 06:33] LABS: Calcium 9.8 MG/DL (8.5-10.1); Osmolality,Calculated 288.6 MOS/KG (273-304)
[2019-10-24] MEDS ORDERED: SODIUM CHLORIDE 0.45% 1,000 ML IV SCH (10:30)
[2019-10-24] MEDS: DEXT 5% NACL 0.45% KCL 40 MEQ 40 MEQ/1,000 ML BAG IV SCH ×2 (13:19→18:30)
[2019-10-24] MEDS: cefTRIAXone 1,000 MG in SYRINGE 1 EACH IV SCH (15:30)
[2019-10-24] MEDS: METOCLOPRAMIDE 10 MG/2 ML VIAL IV SCH (17:42)
[2019-10-25] MEDS: DEXT 5% NACL 0.45% KCL 40 MEQ 40 MEQ/1,000 ML BAG IV SCH ×5 (00:49→18:30)
[2019-10-25] MEDS: METOCLOPRAMIDE 10 MG/2 ML VIAL IV SCH ×4 (00:54→18:08)
[2019-10-25] MEDS: INSULIN LISPRO 100 UNIT/ML SUBCUT SCH ×4 (00:55→17:41)
[2019-10-25] MEDS: ALBUTEROL/IPRATROPIUM 3 ML NEB RESP TX SCH ×4 (01:47→19:53)
[2019-10-25 05:39] LABS: Basophils % 0.2 % (0.0-0.8); Eosinophils # 0.1 10*3/uL (0.0-0.87); Eosinophils % 2.2 % (0.00-10.9); Hematocrit 27.5 VOL% (35.7-47.0); Hemoglobin 7.9 GM/DL (12.0-16.0); Immature Granulocytes % 0.4 %; Immature Granulocytes Absolute 0.02 #; Lymphocytes % 20.5 % (21.3-54.2); Mean Corpuscular HGB Conc 28.7 GM/DL (32-36); Mean Corpuscular Volume 93.5 FL (87-102); Monocytes % 9.1 % (1.7-12.7); Neutrophils % 67.6 % (38.7-73.9); Platelet Count 233 T/CUMM (130-400); Red Blood Count 2.94 MC/CUMM (3.8-5.5); White Blood Count 4.9 T/CUMM (4-12)
[2019-10-25 05:52] LABS: Calcium 10.3 MG/DL (8.5-10.1); Osmolality,Calculated 294.3 MOS/KG (273-304)
[2019-10-25 06:03] LABS: Anisocytosis 1+; Ovalocytes 1+; Platelet Estimate Normal
[2019-10-25] MEDS: metroNIDAZOLE INJ 500 MG in PREMIX 1 EACH IV SCH ×3 (06:22→21:16)
[2019-10-25] MEDS ORDERED: IRON SUCROSE 300 MG in SODIUM CHLORIDE 0.9% 100 ML IV ONE (13:00)
[2019-10-25] MEDS: cefTRIAXone 1,000 MG in SYRINGE 1 EACH IV SCH (15:57)
[2019-10-26] MEDS: INSULIN LISPRO 100 UNIT/ML SUBCUT SCH ×3 (00:24→12:48)
[2019-10-26] MEDS: METOCLOPRAMIDE 10 MG/2 ML VIAL IV SCH ×2 (00:24→05:44)
[2019-10-26] MEDS: ALBUTEROL/IPRATROPIUM 3 ML NEB RESP TX SCH ×3 (02:22→13:10)
[2019-10-26] MEDS: DEXT 5% NACL 0.45% KCL 40 MEQ 40 MEQ/1,000 ML BAG IV SCH ×2 (04:41→16:01)
[2019-10-26 05:39] LABS: Basophils % 0.2 % (0.0-0.8); Eosinophils # 0.1 10*3/uL (0.0-0.87); Eosinophils % 2.4 % (0.00-10.9); Hemoglobin 7.5 GM/DL (12.0-16.0); Immature Granulocytes % 0.4 %; Immature Granulocytes Absolute 0.02 #; Lymphocytes # 1.2 10*3/uL (1.4-4.0); Lymphocytes % 25.6 % (21.3-54.2); Mean Corpuscular HGB Conc 28.8 GM/DL (32-36); Mean Corpuscular Volume 91.9 FL (87-102); Mean Platelet Volume 9.7 FL (9.6-12.0); Monocytes % 8.4 % (1.7-12.7); Platelet Count 232 T/CUMM (130-400); Red Blood Count 2.83 MC/CUMM (3.8-5.5); Red Cell Distribution Width 17.6 % (9.3-17.3); White Blood Count 4.5 T/CUMM (4-12)
[2019-10-26] MEDS: metroNIDAZOLE INJ 500 MG in PREMIX 1 EACH IV SCH ×2 (05:45→15:32)
[2019-10-26 06:13] LABS: Anisocytosis 1+; Platelet Estimate Normal; Tear Drop Cells Few
[2019-10-26 06:14] LABS: Polychromasia Slight
[2019-10-26 07:09] LABS: Sedimentation Rate-Westergren 115 MM/HR (0-30)
[2019-10-26 08:03] LABS: Vitamin B12 1263 PG/ML (211-911)
[2019-10-26 10:11] LABS: Hemoglobin A1 (Alkaline) 97.3 % (96.5-98.5); Hemoglobin A2 (Alkaline) 2.7 % (1.5-3.5)
[2019-10-26] MEDS: METOCLOPRAMIDE 10 MG/10 ML UDCUP PO SCH ×2 (12:48→16:03)
[2019-10-26] MEDS: cefTRIAXone 1,000 MG in SYRINGE 1 EACH IV SCH (15:32)
[2019-10-26 16:18] VITALS: BP 183/85
== END 2019-10-26 16:28 | disposition home health service (06) | DRG 388 ==
LOC: EDUNIT# → EDBD → N.ED 14:43 → N.EDINP 17:39 → SUATTDRO 17:39 → N.3E 18:25
PROVIDERS: ADMIT Internal Medicine; ATTEND Hospitalist

== ENCOUNTER 2019-11-03 14:44 | Inpatient (IN) ==
[2019-11-03] MEDS ORDERED: MAGNESIUM SULF RIDER 2 GM in PREMIX 1 EACH IV PRN ×2 (17:26→17:42)
[2019-11-03] MEDS ORDERED: MAGNESIUM SULF RIDER 4 GM in PREMIX 1 EACH IV PRN ×2 (17:26→17:42)
[2019-11-03] MEDS ORDERED: GLUCAGON 1 MG VIAL IM PRN (17:28)
[2019-11-03] MEDS ORDERED: DEXTROSE 50% 25 GM/50 ML VIAL IV PRN (17:28)
[2019-11-03] MEDS ORDERED: ALBUTEROL 2.5 MG/3 ML NEB RESP TX PRN (17:28)
[2019-11-03] MEDS ORDERED: METOPROLOL TARTRATE 5 MG/5 ML VIAL IV PRN (17:35)
[2019-11-03] MEDS: SODIUM CHLORIDE 0.9% 1,000 ML IV SCH ×2 (18:31→22:45)
[2019-11-03 18:47] LABS: Basophils % 0.2 % (0.0-0.8); Eosinophils # 0.1 10*3/uL (0.0-0.87); Eosinophils % 1.5 % (0.00-10.9); Hematocrit 25.6 VOL% (35.7-47.0); Hemoglobin 7.3 GM/DL (12.0-16.0); Immature Granulocytes % 3.2 %; Immature Granulocytes Absolute 0.21 #; Lymphocytes # 1.4 10*3/uL (1.4-4.0); Lymphocytes % 21.7 % (21.3-54.2); Mean Corpuscular HGB Conc 28.5 GM/DL (32-36); Mean Corpuscular Volume 93.4 FL (87-102); Mean Platelet Volume 9.7 FL (9.6-12.0); Monocytes % 9.5 % (1.7-12.7); NRBC # 0.04 10*3/uL; Neutrophils % 63.9 % (38.7-73.9); Platelet Count 290 T/CUMM (130-400); Red Blood Count 2.74 MC/CUMM (3.8-5.5); Red Cell Distribution Width 18.1 % (9.3-17.3); White Blood Count 6.5 T/CUMM (4-12)
[2019-11-03 18:55] LABS: Albumin 2.8 G/DL (3.4-5.0); Bilirubin,Total 0.4 MG/DL (0.2-1.0); Calcium 9.2 MG/DL (8.5-10.1); Osmolality,Calculated 275.8 MOS/KG (273-304); Total Protein 6.6 G/DL (6.4-8.3)
[2019-11-03] MEDS: ALBUTEROL/IPRATROPIUM 3 ML NEB RESP TX SCH (19:47)
[2019-11-03] MEDS: ENOXAPARIN 40 MG/0.4 ML SYRINGE SUBCUT SCH (21:08)
[2019-11-03] MEDS: BUDESONIDE/FORMOTEROL 160-4.5 INHALER 6 GM INH SCH (21:08)
[2019-11-03 21:25] LABS: Apearance,Urine Slightly Hazy (Clear); Bacteria,Urine Occasional /HPF (Few); Bilirubin,Urine Negative (Negative); Blood, Urine Moderate mg/dL (Negative); Glucose,Urine (UA) Negative (Negative); Ketones,Urine Negative (Negative); Mucus,Urine Occasional /LPF (Occasional); Nitrite,Urine Negative (Negative); Protein,Urine 30 MG/DL; RBC,Urine 1 /HPF (0-4); Squamous Epithelial Cell,Urine Occasional /HPF (0-10); Urine Color Yellow (Yellow); Urine Specific Gravity 1.009 (1.001-1.035); Urine Urobilinogen < 2.0 EU/DL (0.2-1.0); WBC,Urine 2 /HPF (0-6)
[2019-11-03] MEDS ORDERED: SODIUM CHLORIDE 0.9% 1,000 ML IV PRN (22:46)
[2019-11-04] MEDS: cefTRIAXone 1,000 MG in SYRINGE 1 EACH IV SCH (00:40)
[2019-11-04] MEDS: ALBUTEROL/IPRATROPIUM 3 ML NEB RESP TX SCH ×5 (01:59→19:30)
[2019-11-04 07:39] LABS: Basophils % 0.2 % (0.0-0.8); Eosinophils # 0.1 10*3/uL (0.0-0.87); Eosinophils % 1.3 % (0.00-10.9); Hematocrit 27.7 VOL% (35.7-47.0); Hemoglobin 8.1 GM/DL (12.0-16.0); Immature Granulocytes % 3.5 %; Immature Granulocytes Absolute 0.19 #; Lymphocytes # 1.2 10*3/uL (1.4-4.0); Lymphocytes % 22.6 % (21.3-54.2); Mean Corpuscular HGB Conc 29.2 GM/DL (32-36); Mean Corpuscular Volume 91.1 FL (87-102); Mean Platelet Volume 9.7 FL (9.6-12.0); Monocytes % 8.8 % (1.7-12.7); NRBC # 0.03 10*3/uL; Neutrophils % 63.6 % (38.7-73.9); Platelet Count 259 T/CUMM (130-400); Red Blood Count 3.04 MC/CUMM (3.8-5.5); Red Cell Distribution Width 19.1 % (9.3-17.3); White Blood Count 5.5 T/CUMM (4-12)
[2019-11-04 08:14] LABS: Alanine Aminotransferase 25 U/L (13-56); Albumin 2.6 G/DL (3.4-5.0); Alkaline Phosphatase 152 U/L (45-117); Aspartate Amino Transferase 39 U/L (0-37); Bilirubin,Total < 0.39 MG/DL (0.2-1.0); Blood Urea Nitrogen 12 MG/DL (7-18); Calcium 8.8 MG/DL (8.5-10.1); Estimated Glom Filtration Rate 36 ML/MIN; Glucose 127 MG/DL (74-106); Osmolality,Calculated 282.3 MOS/KG (273-304); Total Protein 6.5 G/DL (6.4-8.3)
[2019-11-04 08:15] LABS: Risk Ratio 2.5
[2019-11-04] MEDS: PANTOPRAZOLE 40 MG VIAL IV SCH (08:43)
[2019-11-04] MEDS: BUDESONIDE/FORMOTEROL 160-4.5 INHALER 6 GM INH SCH ×2 (08:44→21:27)
[2019-11-04] MEDS: SODIUM CHLORIDE 0.9% 1,000 ML IV SCH ×3 (09:24→18:08)
[2019-11-04] MEDS: ENOXAPARIN 40 MG/0.4 ML SYRINGE SUBCUT SCH (21:27)
[2019-11-05] MEDS: cefTRIAXone 1,000 MG in SYRINGE 1 EACH IV SCH ×2 (01:47→23:48)
[2019-11-05] MEDS: ALBUTEROL/IPRATROPIUM 3 ML NEB RESP TX SCH ×5 (02:36→20:00)
[2019-11-05 05:46] LABS: Basophils % 0.4 % (0.0-0.8); Eosinophils # 0.1 10*3/uL (0.0-0.87); Eosinophils % 1.5 % (0.00-10.9); Hematocrit 27.1 VOL% (35.7-47.0); Hemoglobin 7.8 GM/DL (12.0-16.0); Immature Granulocytes % 4.9 %; Immature Granulocytes Absolute 0.26 #; Lymphocytes # 1.2 10*3/uL (1.4-4.0); Lymphocytes % 23.2 % (21.3-54.2); Mean Corpuscular HGB Conc 28.8 GM/DL (32-36); Mean Corpuscular Volume 93.8 FL (87-102); Mean Platelet Volume 8.9 FL (9.6-12.0); NRBC # 0.03 10*3/uL; Platelet Count 261 T/CUMM (130-400); Red Blood Count 2.89 MC/CUMM (3.8-5.5); Red Cell Distribution Width 19.4 % (9.3-17.3); White Blood Count 5.3 T/CUMM (4-12)
[2019-11-05 06:09] LABS: Albumin 2.5 G/DL (3.4-5.0); Bilirubin,Total 0.6 MG/DL (0.2-1.0); Calcium 8.9 MG/DL (8.5-10.1); Total Protein 6.1 G/DL (6.4-8.3)
[2019-11-05 06:28] LABS: Hypochromasia 2+; Microcytosis 1+; Ovalocytes Slight; Platelet Estimate Adequate
[2019-11-05] MEDS: SODIUM CHLORIDE 0.9% 1,000 ML IV SCH ×5 (07:06→18:52)
[2019-11-05] MEDS: BUDESONIDE/FORMOTEROL 160-4.5 INHALER 6 GM INH SCH ×2 (09:26→20:55)
[2019-11-05] MEDS: PANTOPRAZOLE 40 MG VIAL IV SCH ×3 (09:28→20:55)
[2019-11-05] MEDS: METOCLOPRAMIDE 10 MG/2 ML VIAL IV SCH ×3 (13:42→23:45)
[2019-11-05 18:26] LABS: Amorphous Crystals,Urine Occasional /HPF (Few); Apearance,Urine CLEAR (Clear); Bacteria,Urine Few /HPF (Few); Bilirubin,Urine Negative (Negative); Blood, Urine Large mg/dL (Negative); Glucose,Urine (UA) Negative (Negative); Ketones,Urine Negative (Negative); Nitrite,Urine Negative (Negative); Protein,Urine Negative; RBC,Urine 6 /HPF (0-4); Squamous Epithelial Cell,Urine Occasional /HPF (0-10); Urine Color Yellow (Yellow); Urine Specific Gravity 1.005 (1.001-1.035); Urine Urobilinogen < 2.0 EU/DL (0.2-1.0); WBC,Urine 2 /HPF (0-6)
[2019-11-06] MEDS: ALBUTEROL/IPRATROPIUM 3 ML NEB RESP TX SCH ×4 (02:34→19:43)
[2019-11-06] MEDS: SODIUM CHLORIDE 0.9% 1,000 ML IV SCH ×4 (02:36→23:45)
[2019-11-06] MEDS: METOCLOPRAMIDE 10 MG/2 ML VIAL IV SCH (05:06)
[2019-11-06 05:46] LABS: Basophils % 0.2 % (0.0-0.8); Eosinophils # 0.1 10*3/uL (0.0-0.87); Eosinophils % 1.4 % (0.00-10.9); Hematocrit 29.5 VOL% (35.7-47.0); Hemoglobin 8.6 GM/DL (12.0-16.0); Immature Granulocytes % 4.3 %; Immature Granulocytes Absolute 0.22 #; Lymphocytes # 1.1 10*3/uL (1.4-4.0); Lymphocytes % 22.4 % (21.3-54.2); Mean Corpuscular HGB Conc 29.2 GM/DL (32-36); Mean Corpuscular Volume 91.9 FL (87-102); Mean Platelet Volume 9.5 FL (9.6-12.0); Monocytes % 9.8 % (1.7-12.7); NRBC # 0.02 10*3/uL; Neutrophils % 61.9 % (38.7-73.9); Platelet Count 249 T/CUMM (130-400); Red Blood Count 3.21 MC/CUMM (3.8-5.5); Red Cell Distribution Width 18.9 % (9.3-17.3); White Blood Count 5.1 T/CUMM (4-12)
[2019-11-06 06:11] LABS: Alanine Aminotransferase 24 U/L (13-56); Albumin 2.5 G/DL (3.4-5.0); Alkaline Phosphatase 145 U/L (45-117); Aspartate Amino Transferase 37 U/L (0-37); Bilirubin,Total < 0.39 MG/DL (0.2-1.0); Blood Urea Nitrogen 6 MG/DL (7-18); Calcium 9.2 MG/DL (8.5-10.1); Estimated Glom Filtration Rate 58 ML/MIN; Glucose 103 MG/DL (74-106); Osmolality,Calculated 285.7 MOS/KG (273-304); Total Protein 6.2 G/DL (6.4-8.3)
[2019-11-06] MEDS: LACTATED RINGERS 1,000 ML IV SCH (07:58)
[2019-11-06] MEDS ORDERED: LIDOCAINE 2% 5 ML VIAL ONE (09:00)
[2019-11-06] MEDS ORDERED: propofoL 200 MG/20 ML VIAL IV ONE (09:00)
[2019-11-06] MEDS: BUDESONIDE/FORMOTEROL 160-4.5 INHALER 6 GM INH SCH ×2 (09:30→21:20)
[2019-11-06] MEDS: POTASSIUM CHLORIDE RIDER 10 MEQ in PREMIX 1 EACH IV PRN (10:33)
[2019-11-06] MEDS: METOCLOPRAMIDE 10 MG/10 ML UDCUP PO SCH ×3 (11:48→21:19)
[2019-11-06] MEDS ORDERED: guaiFENesin/CODEINE 5 ML LIQUID PO PRN (20:49)
[2019-11-06] MEDS ORDERED: guaiFENesin 200 MG/10 ML UDCUP PO PRN (20:52)
[2019-11-06] MEDS: PANTOPRAZOLE 40 MG TABLET PO SCH (21:19)
[2019-11-06] MEDS: hydrALAZINE 20 MG/1 ML VIAL IV PRN (21:19)
[2019-11-06] MEDS ORDERED: AMITRIPTYLINE 25 MG TABLET PO SCH (23:00)
[2019-11-06] MEDS: cefTRIAXone 1,000 MG in SYRINGE 1 EACH IV SCH (23:31)
[2019-11-07] MEDS: ALBUTEROL/IPRATROPIUM 3 ML NEB RESP TX SCH ×6 (00:24→20:18)
[2019-11-07] MEDS: SODIUM CHLORIDE 0.9% 1,000 ML IV SCH ×2 (00:43→12:13)
[2019-11-07] MEDS: hydrALAZINE 20 MG/1 ML VIAL IV PRN ×2 (03:18→21:55)
[2019-11-07] MEDS ORDERED: FUROSEMIDE 40 MG/4 ML VIAL IV ONE (04:26)
[2019-11-07 05:46] LABS: Basophils % 0.6 % (0.0-0.8); Eosinophils # 0.1 10*3/uL (0.0-0.87); Eosinophils % 1.3 % (0.00-10.9); Hematocrit 33.1 VOL% (35.7-47.0); Hemoglobin 9.9 GM/DL (12.0-16.0); Immature Granulocytes Absolute 0.28 #; Lymphocytes # 1.3 10*3/uL (1.4-4.0); Lymphocytes % 18.6 % (21.3-54.2); Mean Corpuscular HGB Conc 29.9 GM/DL (32-36); Mean Corpuscular Volume 89.9 FL (87-102); Mean Platelet Volume 10.1 FL (9.6-12.0); Monocytes % 8.5 % (1.7-12.7); NRBC # 0.02 10*3/uL; Platelet Count 319 T/CUMM (130-400); Red Blood Count 3.68 MC/CUMM (3.8-5.5); Red Cell Distribution Width 18.9 % (9.3-17.3)
[2019-11-07] MEDS: PANTOPRAZOLE 40 MG TABLET PO SCH ×2 (06:01→21:55)
[2019-11-07 06:02] LABS: Albumin 3.2 G/DL (3.4-5.0); Bilirubin,Total 1.4 MG/DL (0.2-1.0); Calcium 10.5 MG/DL (8.5-10.1); Total Protein 7.5 G/DL (6.4-8.3)
[2019-11-07] MEDS: POTASSIUM CHLORIDE RIDER 10 MEQ in PREMIX 1 EACH IV PRN ×3 (06:20→12:12)
[2019-11-07] MEDS: METOCLOPRAMIDE 10 MG/10 ML UDCUP PO SCH ×4 (09:54→21:55)
[2019-11-07] MEDS: BUDESONIDE/FORMOTEROL 160-4.5 INHALER 6 GM INH SCH ×2 (09:54→21:56)
[2019-11-07] MEDS: LACTATED RINGERS 1,000 ML IV SCH (09:55)
[2019-11-07] MEDS: FUROSEMIDE 40 MG TABLET PO SCH (12:12)
[2019-11-07] MEDS: atenoloL 25 MG TABLET PO SCH (12:12)
[2019-11-07] MEDS: ANASTROZOLE 1 MG TABLET PO SCH (12:12)
[2019-11-07] MEDS ORDERED: ARIPiprazole 5 MG TABLET PO SCH (21:00)
[2019-11-07] MEDS ORDERED: AMITRIPTYLINE 25 MG TABLET PO SCH (21:00)
[2019-11-07] MEDS: ENOXAPARIN 40 MG/0.4 ML SYRINGE SUBCUT SCH (21:55)
[2019-11-07] MEDS: POTASSIUM CHLORIDE 10 MEQ TABLET PO SCH (21:55)
[2019-11-08] MEDS: ALBUTEROL/IPRATROPIUM 3 ML NEB RESP TX SCH ×4 (01:42→10:52)
[2019-11-08 05:33] LABS: Basophils % 0.3 % (0.0-0.8); Eosinophils # 0.1 10*3/uL (0.0-0.87); Eosinophils % 1.5 % (0.00-10.9); Hematocrit 27.9 VOL% (35.7-47.0); Hemoglobin 8.1 GM/DL (12.0-16.0); Immature Granulocytes % 2.3 %; Immature Granulocytes Absolute 0.14 #; Lymphocytes # 1.4 10*3/uL (1.4-4.0); Lymphocytes % 23.5 % (21.3-54.2); Mean Corpuscular Volume 92.1 FL (87-102); Mean Platelet Volume 9.6 FL (9.6-12.0); Monocytes % 9.2 % (1.7-12.7); Neutrophils % 63.2 % (38.7-73.9); Platelet Count 276 T/CUMM (130-400); Red Blood Count 3.03 MC/CUMM (3.8-5.5); Red Cell Distribution Width 18.6 % (9.3-17.3)
[2019-11-08 06:17] LABS: Alanine Aminotransferase 26 U/L (13-56); Albumin 2.7 G/DL (3.4-5.0); Alkaline Phosphatase 141 U/L (45-117); Aspartate Amino Transferase 38 U/L (0-37); Bilirubin,Total < 0.39 MG/DL (0.2-1.0); Blood Urea Nitrogen 7 MG/DL (7-18); Calcium 9.8 MG/DL (8.5-10.1); Estimated Glom Filtration Rate 53 ML/MIN; Glucose 125 MG/DL (74-106); Osmolality,Calculated 284.8 MOS/KG (273-304); Total Protein 6.2 G/DL (6.4-8.3)
[2019-11-08] MEDS: ANASTROZOLE 1 MG TABLET PO SCH (09:07)
[2019-11-08] MEDS: atenoloL 25 MG TABLET PO SCH (09:07)
[2019-11-08] MEDS: FUROSEMIDE 40 MG TABLET PO SCH (09:07)
[2019-11-08] MEDS: METOCLOPRAMIDE 10 MG/10 ML UDCUP PO SCH ×2 (09:07→12:15)
[2019-11-08] MEDS: POTASSIUM CHLORIDE 10 MEQ TABLET PO SCH (09:07)
[2019-11-08] MEDS: PANTOPRAZOLE 40 MG TABLET PO SCH (09:08)
[2019-11-08] MEDS: BUDESONIDE/FORMOTEROL 160-4.5 INHALER 6 GM INH SCH (10:04)
[2019-11-08 11:20] VITALS: BP 158/71
[2019-11-08] MEDS: LACTATED RINGERS 1,000 ML IV SCH (11:44)
== END 2019-11-08 13:35 | disposition home or self-care (01) | DRG 392 ==
LOC: N.3E 16:41 → N.4E 11-06 13:11
PROVIDERS: ADMIT Internal Medicine; ATTEND Family Medicine

== ENCOUNTER 2020-02-04 12:58 | Inpatient (IN) ==
[2020-02-04] MEDS ORDERED: PROMETHAZINE 25 MG/1 ML VIAL IM PRN (15:19)
[2020-02-04] MEDS ORDERED: DEXTROSE 50% 25 GM/50 ML VIAL IV PRN (15:19)
[2020-02-04] MEDS ORDERED: ONDANSETRON 4 MG/2 ML VIAL IV PRN (15:19)
[2020-02-04] MEDS ORDERED: hydrALAZINE 20 MG/1 ML VIAL IV PRN (15:19)
[2020-02-04] MEDS ORDERED: MORPHINE 4 MG/1 ML VIAL IV PRN (15:19)
[2020-02-04] MEDS ORDERED: GLUCAGON 1 MG VIAL IM PRN (15:19)
[2020-02-04] MEDS ORDERED: ALBUTEROL 2.5 MG/3 ML NEB RESP TX PRN (15:30)
[2020-02-04] MEDS ORDERED: ALBUTEROL 2.5 MG/3 ML NEB RESP TX SCH (18:00)
[2020-02-04] MEDS: SODIUM CHLORIDE 0.9% 1,000 ML IV SCH (18:21)
[2020-02-04] MEDS: METOPROLOL TARTRATE 5 MG/5 ML VIAL IV SCH ×2 (18:22→23:27)
[2020-02-04] MEDS: methylPREDNISolone SOD SUC 40 MG/1 ML VIAL IV SCH ×2 (18:26→23:19)
[2020-02-04] MEDS: ALBUTEROL/IPRATROPIUM 3 ML NEB RESP TX SCH (19:32)
[2020-02-04] MEDS: PANTOPRAZOLE 40 MG VIAL IV SCH (21:24)
[2020-02-05] MEDS: ALBUTEROL/IPRATROPIUM 3 ML NEB RESP TX SCH ×4 (01:50→19:12)
[2020-02-05] MEDS: METOPROLOL TARTRATE 5 MG/5 ML VIAL IV SCH ×3 (05:47→18:28)
[2020-02-05 06:00] LABS: Basophils % 0.1 % (0.0-0.8); Hematocrit 28.3 VOL% (35.7-47.0); Hemoglobin 8.4 GM/DL (12.0-16.0); Immature Granulocytes % 1.4 %; Immature Granulocytes Absolute 0.13 #; Lymphocytes # 0.8 10*3/uL (1.4-4.0); Lymphocytes % 8.9 % (21.3-54.2); Mean Corpuscular HGB Conc 29.7 GM/DL (32-36); Mean Platelet Volume 8.9 FL (9.6-12.0); Monocytes % 1.9 % (1.7-12.7); Neutrophils % 87.7 % (38.7-73.9); Platelet Count 253 T/CUMM (130-400); Red Blood Count 3.18 MC/CUMM (3.8-5.5); Red Cell Distribution Width 24.5 % (9.3-17.3)
[2020-02-05] MEDS: SODIUM CHLORIDE 0.9% 1,000 ML IV SCH ×2 (06:00→15:26)
[2020-02-05 06:22] LABS: Anisocytosis 1+; Hypochromasia 1+; Microcytosis 1+; Ovalocytes Few
[2020-02-05 06:23] LABS: Platelet Estimate Normal; Polychromasia Slight; Tear Drop Cells Slight
[2020-02-05 06:29] LABS: Albumin 2.3 G/DL (3.4-5.0); Bilirubin,Total 0.7 MG/DL (0.2-1.0); Calcium 11.3 MG/DL (8.5-10.1); Osmolality,Calculated 299.1 MOS/KG (273-304)
[2020-02-05] MEDS ORDERED: FLUTICASONE FUROATE VILANTEROL INH SCH (09:00)
[2020-02-05] MEDS: PANTOPRAZOLE 40 MG VIAL IV SCH ×2 (10:02→22:19)
[2020-02-05] MEDS: methylPREDNISolone SOD SUC 40 MG/1 ML VIAL IV SCH ×3 (10:06→22:40)
[2020-02-05] MEDS: METOCLOPRAMIDE 10 MG/2 ML VIAL IV SCH (18:32)
[2020-02-06] MEDS: METOPROLOL TARTRATE 5 MG/5 ML VIAL IV SCH ×4 (01:02→18:06)
[2020-02-06] MEDS: METOCLOPRAMIDE 10 MG/2 ML VIAL IV SCH ×4 (01:04→18:09)
[2020-02-06] MEDS: ALBUTEROL/IPRATROPIUM 3 ML NEB RESP TX SCH ×4 (02:24→19:03)
[2020-02-06] MEDS: SODIUM CHLORIDE 0.9% 1,000 ML IV SCH ×3 (05:14→22:40)
[2020-02-06 06:54] LABS: Hematocrit 27.9 VOL% (35.7-47.0); Hemoglobin 8.2 GM/DL (12.0-16.0); Immature Granulocytes % 1.4 %; Immature Granulocytes Absolute 0.14 #; Lymphocytes # 0.5 10*3/uL (1.4-4.0); Lymphocytes % 4.7 % (21.3-54.2); Mean Corpuscular HGB Conc 29.4 GM/DL (32-36); Mean Corpuscular Volume 89.7 FL (87-102); Mean Platelet Volume 10.1 FL (9.6-12.0); Monocytes % 4.7 % (1.7-12.7); Neutrophils % 89.2 % (38.7-73.9); Platelet Count 272 T/CUMM (130-400); Red Blood Count 3.11 MC/CUMM (3.8-5.5); Red Cell Distribution Width 24.4 % (9.3-17.3); White Blood Count 9.9 T/CUMM (4-12)
[2020-02-06 07:14] LABS: Albumin 2.3 G/DL (3.4-5.0); Bilirubin,Total 0.6 MG/DL (0.2-1.0); Calcium 10.4 MG/DL (8.5-10.1); Osmolality,Calculated 313.6 MOS/KG (273-304); Total Protein 5.9 G/DL (6.4-8.3)
[2020-02-06 07:19] LABS: Hypochromasia 1+; Lymphocytes 6 % (20-55); Ovalocytes Slight; Platelet Estimate Adequate; Segmented Neutrophils 93 % (50-85); Total Cells Counted 100
[2020-02-06 07:20] LABS: Microcytosis 1+
[2020-02-06] MEDS: INSULIN REGULAR 100 UNIT/ML SUBCUT SCH ×3 (09:12→18:05)
[2020-02-06] MEDS: methylPREDNISolone SOD SUC 40 MG/1 ML VIAL IV SCH ×2 (09:12→16:35)
[2020-02-06] MEDS: PANTOPRAZOLE 40 MG VIAL IV SCH ×2 (09:15→22:11)
[2020-02-06] MEDS ORDERED: INSULIN REGULAR 100 UNIT/ML SUBCUT SCH (12:00)
[2020-02-07] MEDS: ALBUTEROL/IPRATROPIUM 3 ML NEB RESP TX SCH ×4 (00:06→19:33)
[2020-02-07] MEDS: methylPREDNISolone SOD SUC 40 MG/1 ML VIAL IV SCH ×4 (00:21→22:30)
[2020-02-07] MEDS: METOPROLOL TARTRATE 5 MG/5 ML VIAL IV SCH ×4 (00:48→17:32)
[2020-02-07] MEDS: SODIUM CHLORIDE 0.9% 1,000 ML IV SCH ×3 (00:48→22:29)
[2020-02-07] MEDS: METOCLOPRAMIDE 10 MG/2 ML VIAL IV SCH ×2 (00:52→06:11)
[2020-02-07] MEDS: INSULIN REGULAR 100 UNIT/ML SUBCUT SCH ×4 (00:54→18:16)
[2020-02-07 05:55] LABS: Basophils % 0.2 % (0.0-0.8); Hematocrit 30.9 VOL% (35.7-47.0); Immature Granulocytes % 5.7 %; Immature Granulocytes Absolute 0.56 #; Lymphocytes # 0.5 10*3/uL (1.4-4.0); Lymphocytes % 4.9 % (21.3-54.2); Mean Corpuscular HGB Conc 29.1 GM/DL (32-36); Mean Corpuscular Volume 90.1 FL (87-102); Mean Platelet Volume 9.5 FL (9.6-12.0); Monocytes % 4.3 % (1.7-12.7); NRBC # 0.04 10*3/uL; Neutrophils % 84.9 % (38.7-73.9); Platelet Count 288 T/CUMM (130-400); Red Blood Count 3.43 MC/CUMM (3.8-5.5); Red Cell Distribution Width 24.6 % (9.3-17.3); White Blood Count 9.8 T/CUMM (4-12)
[2020-02-07 06:18] LABS: Band Neutrophils 5 % (0-10); Eosinophils 1 % (0-10); Lymphocytes 7 % (20-55); Nucleated Red Blood Cells 1 (0-5); Segmented Neutrophils 83 % (50-85); Total Cells Counted 100
[2020-02-07 06:19] LABS: Hypochromasia 1+; Microcytosis 1+; Platelet Estimate Normal
[2020-02-07 06:28] LABS: % Iron Saturation 30.7 % (18-50); Ferritin 1892.3 ng/ml (8-252)
[2020-02-07 06:31] LABS: Folate 21.4 NG/ML (5.4-24.0)
[2020-02-07 06:32] LABS: Albumin 2.6 G/DL (3.4-5.0); Bilirubin,Total 0.5 MG/DL (0.2-1.0); Calcium 11.5 MG/DL (8.5-10.1); Osmolality,Calculated 307.1 MOS/KG (273-304); Total Protein 6.3 G/DL (6.4-8.3)
[2020-02-07] MEDS: PANTOPRAZOLE 40 MG TABLET PO SCH ×3 (09:31→22:26)
[2020-02-07] MEDS: METOCLOPRAMIDE 10 MG/10 ML UDCUP PO SCH ×6 (09:31→22:25)
[2020-02-07] MEDS ORDERED: POLYETHYLENE GLYCOL POWDER 17 GM PACK PO PRN (10:04)
[2020-02-07] MEDS ORDERED: SIMETHICONE CHEW 80 MG TABLET PO PRN (10:04)
[2020-02-07] MEDS ORDERED: DEXTROSE 50% 25 GM/50 ML VIAL IV PRN (14:41)
[2020-02-07] MEDS ORDERED: SIMVASTATIN 20 MG TABLET PO SCH (21:00)
[2020-02-07] MEDS ORDERED: THEOPHYLLINE ER (24 HR) 400 MG CAPSULE PO SCH (21:00)
[2020-02-07] MEDS ORDERED: AMITRIPTYLINE 25 MG TABLET PO SCH (21:00)
[2020-02-07] MEDS: POTASSIUM CHLORIDE 10 MEQ TABLET PO SCH (22:25)
[2020-02-07] MEDS: GLIMEPIRIDE 2 MG TABLET PO SCH (22:25)
[2020-02-07] MEDS: metFORMIN 500 MG TABLET PO SCH (22:26)
[2020-02-08] MEDS: ALBUTEROL/IPRATROPIUM 3 ML NEB RESP TX SCH ×2 (00:09→07:34)
[2020-02-08] MEDS: INSULIN REGULAR 100 UNIT/ML SUBCUT SCH ×3 (00:13→12:13)
[2020-02-08] MEDS: METOPROLOL TARTRATE 5 MG/5 ML VIAL IV SCH ×3 (00:14→12:13)
[2020-02-08] MEDS: SODIUM CHLORIDE 0.9% 1,000 ML IV SCH (01:20)
[2020-02-08 06:53] LABS: Basophils % 0.1 % (0.0-0.8); Hematocrit 29.4 VOL% (35.7-47.0); Hemoglobin 8.8 GM/DL (12.0-16.0); Immature Granulocytes % 4.9 %; Immature Granulocytes Absolute 0.36 #; Lymphocytes # 0.6 10*3/uL (1.4-4.0); Lymphocytes % 7.8 % (21.3-54.2); Mean Corpuscular HGB Conc 29.9 GM/DL (32-36); Mean Corpuscular Volume 89.6 FL (87-102); Mean Platelet Volume 9.2 FL (9.6-12.0); NRBC # 0.02 10*3/uL; Neutrophils % 81.2 % (38.7-73.9); Platelet Count 227 T/CUMM (130-400); Red Blood Count 3.28 MC/CUMM (3.8-5.5); Red Cell Distribution Width 24.1 % (9.3-17.3); White Blood Count 7.3 T/CUMM (4-12)
[2020-02-08 06:55] LABS: Albumin 2.4 G/DL (3.4-5.0); Bilirubin,Total 0.4 MG/DL (0.2-1.0); Calcium 11.1 MG/DL (8.5-10.1); Osmolality,Calculated 294.7 MOS/KG (273-304)
[2020-02-08] MEDS ORDERED: ANASTROZOLE 1 MG TABLET PO SCH (09:00)
[2020-02-08] MEDS ORDERED: atenoloL 25 MG TABLET PO SCH (09:00)
[2020-02-08] MEDS ORDERED: FUROSEMIDE 40 MG TABLET PO SCH (09:00)
[2020-02-08] MEDS ORDERED: MULTIVITAMIN (CENTRUM) TABLET PO SCH (09:00)
[2020-02-08] MEDS ORDERED: DILTIAZEM CD 300 MG CAPSULE PO SCH (09:00)
[2020-02-08] MEDS ORDERED: ARIPiprazole 5 MG TABLET PO SCH (09:00)
[2020-02-08] MEDS: GLIMEPIRIDE 2 MG TABLET PO SCH (09:23)
[2020-02-08] MEDS: PANTOPRAZOLE 40 MG TABLET PO SCH ×2 (09:23→09:24)
[2020-02-08] MEDS: POTASSIUM CHLORIDE 10 MEQ TABLET PO SCH (09:23)
[2020-02-08] MEDS: metFORMIN 500 MG TABLET PO SCH (09:24)
[2020-02-08] MEDS: METOCLOPRAMIDE 10 MG/10 ML UDCUP PO SCH ×4 (09:25→12:23)
[2020-02-08] MEDS: methylPREDNISolone SOD SUC 40 MG/1 ML VIAL IV SCH (09:28)
[2020-02-08 12:00] VITALS: BP 146/80
== END 2020-02-08 14:13 | disposition home health service (06) | DRG 389 ==
LOC: N.TELES 14:52 → SUATTDRO 14:52
PROVIDERS: ADMIT Internal Medicine; ATTEND Hospitalist